=== PATIENT | male | born 1945 | race Caucasian/White ===

== ENCOUNTER 2016-09-17 20:18 | Observation (INO) ==
[2016-09-17] MEDS ORDERED: 0.9 % Sodium Chloride 1,000 ML IV ONE (21:23)
--- NOTE | 2016-09-17 21:39 | Emergency Department Note ---
Disposition Clinical Impression: Lower GI bleeding, New onset atrial flutter, Bradycardia Disposition: Admitted As Inpatient Condition: Good Referrals: Zenaida Ace DO [Primary Care Provider] - Forms: ED Satisfaction Letter, Work/School Release GI Bleed HPI - General Chief complaint: ED Abdominal Pain Stated complaint: RECTAL BLEED Time Seen by Provider: 09/17/16 21:06 Source: patient Limitations: no limitations Nursing Notes Reviewed: Yes Vital Signs Reviewed: Yes - History of Present Illness HPI Narrative: 71-year-old male with a history of high blood pressure and high cholesterol presents to the emergency department with the chief complaint of blood per rectum. He went to have a bowel movement tonight and states it was very explosive and when he wiped noticed red blood on the paper. Later that evening he went to pass gas and passed another bout of bright red blood into his underwear. While he was taking a shower to get cleaned up he had another gush of bright red blood per rectum. Patient denies any history of GI bleeding in the past. He had an colonoscopy about 20 years but not since then. No family history of colon cancer. Denies any abdominal pain, nausea or vomiting. Denies any recent black or bloody stools. Denies any rectal pain. Denies any lightheadedness or syncope. No chest pain, palpitations or dyspnea. - Related Data Allergies Allergy/AdvReac Type Severity Reaction Status Date / Time No Known Allergies Allergy Verified 09/17/16 21:24 All systems ED: reviewed and negative except as stated. Constitutional: Denies: fever Cardiovascular: Denies: chest pain, palpitations Respiratory: Denies: cough, dyspnea Gastrointestinal: Reports: hematochezia. Denies: abdominal pain, nausea, vomiting, hematemesis Genitourinary: Denies: urgency Musculoskeletal: Denies: back pain Integumentary: Denies: rash Neurological: Denies: headache Past Medical History - Past Medical History Medical history: Reports: hypertension Psychiatric history: Reports: no psych history - Social History Smoking Status: Never smoker Smokeless Tobacco Status: Yes Alcohol use: Reports: none Drug use: Reports: none Physical Exam General: Appears well, alert and oriented x 3 resting comfortably in bed Cardiovascular: Regular rate and rhythm. S1, S2. No murmurs, rubs or gallops. Monitor shows what appears to be atrial flutter Respiratory: Breath sounds clear bilaterally. No wheezing, rales or rhonchi. No resp distress Abdomen: Soft, nontender. No guarding, rebound or rigidity. Normal bowel sounds throughout. Negative Waldron's. No palpable organomegaly Eyes: conjunctiva clear HENT: Occasional white plaques on tongue. No oral mucosal lesions. Moist mucous membranes Neuro: Cranial nerves intact. No motor or sensory deficit. Musculoskeletal: No joint tenderness or swelling Skin: No lesions. No diaphoresis. Normal turgor. Normal color Psych: Appropriate - General Limitations: no limitations General appearance: alert, in no apparent distress Course Course Narrative: Presented to the emergency department with the chief complaint of blood per rectum. No history of GI bleed in the past. He is on aspirin and Plavix. Rectal exam reveals gross bright red blood without any hemorrhoids, fissures or signs of source. CT scan shows diverticulosis without diverticulitis. Hemoglobin and blood pressure stable. On the monitor he was having runs of bradycardia into the mid to low 30s. His initial EKG showed what appeared to be atrial flutter with a 4-1 ratio and during his run of bradycardia and EKG was performed showing what appears to be a 7-1 atrial flutter. Patient has not been significantly symptomatic from this and states over the last couple days she has felt a little bit more tired with exertion. Since he has not been evaluated for this in the past and getting quite bradycardic we feel its safest for the patient to be evaluated by a information tech prior to discharge. Plan to admit for new onset atrial flutter with bradycardia. Spoke with Dr. Patel who agrees to admit the patient and he will be sent to telemetry unit. Vital Signs Temperature 97.6 F 09/17/16 20:31 Pulse Rate 64 09/17/16 20:31 Respiratory Rate 16 09/17/16 20:31 Blood Pressure 145/89 09/17/16 20:31 O2 Sat by Pulse Oximetry 93 L 09/17/16 20:31 Temperature 97.6 F 09/17/16 20:31 Pulse Rate 46 09/18/16 00:00 Respiratory Rate 20 09/18/16 00:00 Blood Pressure 165/92 09/18/16 00:00 O2 Sat by Pulse Oximetry 94 L 09/18/16 00:00 Oxygen Delivery Oxygen Delivery Room Air GI Bleed - Lab Data Result diagrams: 09/17/16 21:44 09/17/16 21:44 Lab Results 09/17/16 09/17/16 09/17/16 Range/Units 21:15 21:44 21:44 WBC 7.4 (4.3-11.1) K/mcL RBC 5.72 H (4.19-5.50) M/mcL Hgb 17.5 H (12.9-16.9) g/dL Hct 50.8 H (37.5-50.1) % MCV 88.8 (83.0-100.0) fL MCH 30.6 (28.0-33.3) pg MCHC 34.4 (31.6-35.5) g/dL RDW 12.4 (11.5-14.5) % Plt Count 165 (140-400) K/mcL MPV 10.1 (9.4-12.4) fL Immature Gran % 0.4 (0-4) % Seg Neutrophils % 56.0 % Lymphocytes % 30.8 % Monocytes % 10.7 % Eosinophils % 1.6 % Basophils % 0.5 % Neutrophils # 4.1 (1.6-8.9) K/mcL Lymphocytes # 2.3 (0.6-4.6) K/mcL Monocytes # 0.8 (0.0-1.3) K/mcL Eosinophils # 0.1 (0.0-0.6) K/mcL Basophils # 0.0 (0.0-0.2) K/mcL Immature Plt Fraction 3.8 (1.1-6.1) % PT 12.3 H (9.4-12.1) Seconds INR 1.1 APTT 32.9 (26.0-36.0) Seconds Sodium (136-145) mEq/L Potassium (3.5-4.5) mEq/L Chloride (98-109) mEq/L Carbon Dioxide (19-29) mEq/L BUN (8-26) mg/dL Creatinine (0.72-1.25) mg/dL Est GFR ( Amer) (> 60) Est GFR (Non-Af Amer) (> 60) BUN/Creatinine Ratio (6-26) Glucose (70-99) mg/dL Calculated Osmolality (280-300) Calcium (8.6-10.8) mg/dL Total Bilirubin (0.2-1.2) mg/dL AST (5-34) Units/L ALT (0-55) Units/L Alkaline Phosphatase (38-126) Units/L Serum Total Protein (6.0-8.3) g/dL Albumin (3.5-5.0) g/dL Globulin (2.4-3.5) g/dL Albumin/Globulin Ratio (1.1-2.2) Stool Occult Blood (Negative) Specimen Rejected Clotted Blood Type Antibody Screen 09/17/16 09/17/16 09/17/16 Range/Units 21:44 21:44 21:55 WBC (4.3-11.1) K/mcL RBC (4.19-5.50) M/mcL Hgb (12.9-16.9) g/dL Hct (37.5-50.1) % MCV (83.0-100.0) fL MCH (28.0-33.3) pg MCHC (31.6-35.5) g/dL RDW (11.5-14.5) % Plt Count (140-400) K/mcL MPV (9.4-12.4) fL Immature Gran % (0-4) % Seg Neutrophils % % Lymphocytes % % Monocytes % % Eosinophils % % Basophils % % Neutrophils # (1.6-8.9) K/mcL Lymphocytes # (0.6-4.6) K/mcL Monocytes # (0.0-1.3) K/mcL Eosinophils # (0.0-0.6) K/mcL Basophils # (0.0-0.2) K/mcL Immature Plt Fraction (1.1-6.1) % PT (9.4-12.1) Seconds INR APTT (26.0-36.0) Seconds Sodium 138 (136-145) mEq/L Potassium 4.0 (3.5-4.5) mEq/L Chloride 106 (98-109) mEq/L Carbon Dioxide 23 (19-29) mEq/L BUN 27 H (8-26) mg/dL Creatinine 1.43 H (0.72-1.25) mg/dL Est GFR ( Amer) 59 L (> 60) Est GFR (Non-Af Amer) 49 L (> 60) BUN/Creatinine Ratio 19 (6-26) Glucose 136 H (70-99) mg/dL Calculated Osmolality 293 (280-300) Calcium 9.5 (8.6-10.8) mg/dL Total Bilirubin 0.5 (0.2-1.2) mg/dL AST 28 (5-34) Units/L ALT 28 (0-55) Units/L Alkaline Phosphatase 76 (38-126) Units/L Serum Total Protein 7.1 (6.0-8.3) g/dL Albumin 3.6 (3.5-5.0) g/dL Globulin 3.5 (2.4-3.5) g/dL Albumin/Globulin Ratio 1.0 L (1.1-2.2) Stool Occult Blood Positive A (Negative) Specimen Rejected Blood Type A POSITIVE Antibody Screen NEGATIVE Attestation Statement - Attestation Attestation: I, Chris Wilburn MD, personally performed a history and physical exam of the patient and discussed their management with the resident. I reviewed the resident's note and agree with the documented findings, medical decision making , and plan of care. 71-year-old male presents to the emergency department with a complaint of bright red rectal bleeding which just started about 4:30 this afternoon. Patient states that he had a bowel movement and when he wiped he noticed there was bright red blood on the tissue. A little while later he states he passed some gas and there was some bright red blood in his underwear. He then had a bowel movement with bright red blood. He denies any abdominal pain. No prior history of similar problems. He does take Plavix and aspirin but no other blood thinners. Patient denies any chest pain or palpitations or shortness of breath however was noted to be in atrial flutter with a variable block. While here in the emergency department today patient developed bradycardia with a heart rate primarily in the 40s and occasionally dropping down into the 30s. He was asymptomatic with this and had no chest pain or dizziness or weakness or shortness of breath. On examination patient is a well-developed well-nourished well-appearing elderly male in no acute distress. He is alert and oriented 3. There is no cyanosis or diaphoresis. Chest is nontender to palpation. Breath sounds are clear and equal bilaterally. Heart irregular and bradycardic. Abdomen soft and nontender with normal bowel sounds. Labs reviewed. CT of the abdomen shows diverticulosis with no diverticulitis, no acute abdominal abnormalities. EKG showed atrial flutter. The hospitalist, Dr. Patel, was consulted and accepted admission of the patient.
[2016-09-17 21:52] LABS: Basophils % 0.5 %; Eosinophils # 0.1 K/mcL (0.0-0.6); Eosinophils % 1.6 %; Hematocrit 50.8 % (37.5-50.1); Hemoglobin 17.5 g/dL (12.9-16.9); Immature Granulocytes % 0.4 % (0-4); Immature Platelets 3.8 % (1.1-6.1); Lymphocytes # 2.3 K/mcL (0.6-4.6); Lymphocytes % 30.8 %; Mean Corpuscular HGB Conc 34.4 g/dL (31.6-35.5); Mean Corpuscular Hemoglobin 30.6 pg (28.0-33.3); Mean Corpuscular Volume 88.8 fL (83.0-100.0); Mean Platelet Volume 10.1 fL (9.4-12.4); Monocytes # 0.8 K/mcL (0.0-1.3); Monocytes % 10.7 %; Neutrophils # 4.1 K/mcL (1.6-8.9); Platelet Count 165 K/mcL (140-400); Red Blood Count 5.72 M/mcL (4.19-5.50); Red Cell Distribution Width 12.4 % (11.5-14.5)
[2016-09-17 21:57] LABS: INR 1.1; Prothrombin Time 12.3 Seconds (9.4-12.1)
[2016-09-17 21:59] LABS: Activated Partial Thrombo Time 32.9 Seconds (26.0-36.0)
[2016-09-17 22:06] LABS: Albumin 3.6 g/dL (3.5-5.0); Bilirubin,Total 0.5 mg/dL (0.2-1.2); Calcium 9.5 mg/dL (8.6-10.8); Globulin 3.5 g/dL (2.4-3.5); Total Protein 7.1 g/dL (6.0-8.3)
[2016-09-18] MEDS ORDERED: Acetaminophen 325 MG TABLET PO PRN (01:25)
[2016-09-18] MEDS ORDERED: Ondansetron 4 MG/2 ML VIAL IVP PRN (01:25)
--- NOTE | 2016-09-18 01:42 | Internal Med History&Physical ---
<Carlos Porter - Last Filed: 09/18/16 02:27> Date of Encounter: 09/18/16 Time of Encounter: 02:15 Assessment and Plan (1) Lower GI bleeding Current visit: Yes Status: Acute Likely due to diverticular bleed. Patient continues to have episodes of BRBPR. Hgb 17.5 with history of polycytemia. Will follow H/H. Continue IVFs. Started protonix. Consult GI. (2) New onset atrial flutter Current visit: Yes Status: Acute New onset A flutter with slow ventricular response. Consult to cardiology. (3) Bradycardia Current visit: Yes Status: Acute Asymptomatic bradycardia. Will continue to monitor. (4) HTN (hypertension) Current visit: Yes Status: Chronic BP on admission of 145/89. Continue home regimen at this time. Qualifiers: Hypertension type: essential hypertension Qualified Code(s): I10 - Essential (primary) hypertension (5) Polycythemia Current visit: Yes Status: Chronic Known history of polycythemia, current Hgb 17.5. (6) DVT prophylaxis Current visit: Yes Status: Acute Patient actively bleeding, avoid anticoagulation. Use EPCDs. Internal Medicine - H&P: HPI Chief complaint: rectal bleeding Admitted From: Emergency Dept Plans for Post Hospital Care: Home History of present illness: Mr. Leos is a 71 year old male that presented to the ED for BRBPR x 1 day. Patient notes bright red rectal bleeding this afternoon at approx 4pm with initial bowel movement, with more bleeding noted later with flatulence. Patient does take ASA and Plavix currently for polycytemia. In the ED patient was noted to have atrial flutter and bradycardia. Denies any known cardiac history. Patient denies any syncope, dizziness, chest pain, shortness of breath, abdominal pain. Pertinent medical history of polycythemia, HTN, TIA. Past Med Surg Social Fam HX - Past Medical History Medical history: hypertension Psychiatric history: no psych history - Social History Smoking Status: Never smoker Smokeless Tobacco Status: Yes Alcohol use: none Drug use: none Internal Medicine - H&P: Meds Clopidogrel [Plavix] 75 mg PO DAILY 09/18/16 [History] Allergies No Known Allergies Allergy (Verified 09/17/16 21:24) All Systems PM: A 10-system review of systems was performed and is negative for pertinent findings except as documented above in the HPI. - Constitutional Constitutional: no chills, no fever(s), no night sweats - EENT Eyes: no change in vision, no discharge, no pain, no photophobia Ears: no tinnitus Nose, mouth and throat: no dysphagia, no nasal discharge, no neck pain, no sore throat - Cardiovascular Cardiovascular ROS IM: no chest pain, no diaphoresis, no dyspnea, no lightheadedness, no palpitations, no syncope - Respiratory Respiratory: no dyspnea, no wheezing, no excessive phlegm production - Gastrointestinal Gastrointestinal: hematochezia, no abdominal pain, no hematemesis, no melena, no nausea, no vomiting - Musculoskeletal Musculoskeletal ROS IM: numbness (b/l feet), no tingling - Integumentary Integumentary IM: no rash, no unusual bruising - Neurological Neurological ROS: no confusion, no convulsions, no focal weakness, no tingling, no tremor(s) - Constitutional Vitals: Temp Pulse Resp BP Pulse Ox 97.6 F 46 20 139/86 94 L 09/17/16 20:31 09/18/16 00:00 09/18/16 00:48 09/18/16 00:48 09/18/16 00:00 General appearance: Present: mild distress, A&O X 3, no acute distress, answers questions appropriately - Head Head exam: Present: atraumatic, normocephalic - Eye Eye exam: Present: EOMI, PERRL, conjuntiva pink, sclera anicteric Pupils: Present: PERRL - Neck Neck exam general surgery: Present: supple, trachea midline. Absent: lymphadenopathy - Respiratory Respiratory exam: Present: CTAB. Absent: accessory muscle use, rales, rhonchi, wheezes - Cardiovascular Cardiovascular exam: Present: +S1, +S2. Absent: diastolic murmur, gallop, rubs , systolic murmur - GI/Abdominal GI/Abdominal exam: Present: normal bowel sounds, soft, no peritoneal signs. Absent: distended, tenderness - Extremities Exam Extremities exam: Present: warm. Absent: calf tenderness, cyanotic, pedal edema - Neurological Exam Neurological exam: Present: alert, oriented X3, no focal deficits. Absent: facial droop, speech deficit - Skin Skin exam: Present: dry, intact Internal Med - H&P Results - Labs CBC & Chem 7: 01/04/17 21:44 09/17/16 21:44 <Hayder Gerardo H - Last Filed: 09/18/16 02:45> Date of Encounter: 09/18/16 Internal Medicine - H&P: HPI History of present illness: Mr. Leos is a 71 year old male All Systems PM: A 10-system review of systems was performed and is negative for pertinent findings except as documented above in the HPI. - Constitutional Vitals: Temp Pulse Resp BP Pulse Ox 98.2 F 38 17 147/77 94 L 09/18/16 01:55 09/18/16 02:32 09/18/16 01:55 09/18/16 02:32 09/18/16 02:32 Internal Med - H&P Results - Labs CBC & Chem 7: 09/17/16 21:44 09/17/16 21:44 - Attending Attestation No dizziness, no prior episodes. Next additional past medical history polycythemia, TIA, hypertension, hyperlipidemia Family history mother with heart disease Hold aspirin and Plavix Transfer general prophylaxis and sequential compression devices for deep prophylaxis. Patient will be admitted for observation. He is a full code. Time spent on this admission 40 minutes. He is high risk for falling due to atrial flutter with slow ventricular response and GI bleed/acute diverticular bleed CT scan of the abdomen did not show any acute diverticulitis. Right renal cyst evidenced as incidental finding I examined this patient and my medical decision-making was reviewed with the AGENT TELEGRAPHER/PA/Advanced Practice Nurse/Resident Physician. I agree with the documented findings, disposition and treatment plan as described except to the extent set forth below.
[2016-09-18] MEDS: 0.9 % Sodium Chloride 1,000 ML IVC SCH ×2 (03:12→13:45)
[2016-09-18 05:56] LABS: Hematocrit 48.3 % (37.5-50.1); Hemoglobin 16.3 g/dL (12.9-16.9); Mean Corpuscular HGB Conc 33.7 g/dL (31.6-35.5); Mean Corpuscular Hemoglobin 30.7 pg (28.0-33.3); Platelet Count 146 K/mcL (140-400); Red Blood Count 5.31 M/mcL (4.19-5.50); Red Cell Distribution Width 12.6 % (11.5-14.5)
[2016-09-18] MEDS: Pantoprazole 40 MG VIAL IVP SCH ×2 (06:29→18:50)
[2016-09-18 07:27] LABS: BUN/Creatinine Ratio 20 (6-26); Calcium 8.7 mg/dL (8.6-10.8); Carbon Dioxide 25 mEq/L (19-29); Chloride 110 mEq/L (98-109); Glucose 105 mg/dL (70-99); Osmolality,Calculated 297 (280-300); Potassium 4.3 mEq/L (3.5-4.5); Sodium 141 mEq/L (136-145); eGFR For African Americans > 60 (> 60); eGFR For Non-African Americans 58 (> 60)
[2016-09-18 07:29] LABS: Blood Urea Nitrogen 25 mg/dL (8-26)
[2016-09-18 11:52] LABS: Hematocrit 48.6 % (37.5-50.1); Hemoglobin 16.6 g/dL (12.9-16.9); Mean Corpuscular HGB Conc 34.2 g/dL (31.6-35.5); Mean Corpuscular Hemoglobin 30.5 pg (28.0-33.3); Mean Corpuscular Volume 89.3 fL (83.0-100.0); Mean Platelet Volume 10.5 fL (9.4-12.4); Platelet Count 147 K/mcL (140-400); Red Blood Count 5.44 M/mcL (4.19-5.50); Red Cell Distribution Width 12.6 % (11.5-14.5)
--- NOTE | 2016-09-18 11:57 | Gastroenterology Consult Note ---
<RatliffJose Lewis - Last Filed: 09/18/16 11:55> Date of Encounter: 09/18/16 Time of Encounter: 10:55 - Assessment and plan (1) Lower GI bleeding Current Visit: Yes Status: Acute Assessment and plan: Recommend colonoscopy, but pt refuses at this time, stating he has "been without food since 5PM yesterday and that is too long to go without food". I explained the risks and not completing the colonoscopy, and the patient continued to refuse. Dr. Quiñones will speak with patient this afternoon. Continue clear liquid diet today, no red or purple. If pt is agreeable to colonoscopy: NPO at midnight. If unable tolerate NuLytely please use MiraLAX prep. If not clear by 6 AM, give 2 tap water enemas. (2) Polycythemia Current Visit: Yes Status: Chronic - Time Spent With Patient Total time spent is greater than 50% in coordination of care (as documented) at patient's floor/unit and/or counseling patient: GI History of Present Illness - Data of Consult Patient: new to practice Consult date: 09/18/16 Requesting Physician: Thomas Chance MD - Consult Narrative Reason for consult: BRBPR History of present illness: Mr. Leos is a 71 year old male with PMHx of HTN, TIA, and polycythemia who presented to the ED with BRBPR. He does take ASA and Plavix for polycythemia. He reports BRBPR with BM yesterday and noted more bleeding with flatulence. He reports 4 episodes of BRBPR. He denies syncope, dizziness, chest pain, SOB, abdominal pain, nausea, vomiting, or diarrhea. CT A/P showed diverticulosis otherwise no acute process noted. Hgb on admission 17.5 and this AM 16.3. This AM he complains of being hungry and states he wants to eat. Procedures: Cscope 15 years ago per pt report. NSAIDs: ASA Anticoagulation: Plavix Past Med Surg Social Fam HX - Past Medical History Medical history: hypertension Psychiatric history: no psych history - Social History Smoking Status: Never smoker Smokeless Tobacco Status: Yes Alcohol use: none Drug use: none - Family History Father Living Status: Age at : 89 Cause of : Organ Failure r/t Diabetes Hx Family Cardiac Disorders: Yes (HTN) Hx Family Respiratory Disorders: No Hx Family Cancer: No Hx Family GI Disorders: Yes (Diverticulitis) Hx Family Endocrine Disorder: Yes (Type 2 DM,) Hx Family Musculoskeletal Disorders: No Hx Family Neuromuscular Disorders: No Hx Family Neurologic Disorders: No Hx Family HEENT Disorders: No Hx Family Autoimmune Disorders: No Hx Family Reproductive Disorders: No Hx Family Psychosocial Disorders: No Hx Family Medical Disorders: No - Gastrointestinal Gastrointestinal: Present: as per HPI - Constitutional Constitutional: as per HPI - EENT Eyes: as per HPI Ears: Present: as per HPI Nose, mouth and throat: Present: as per HPI - Respiratory Respiratory IM: Present: as per HPI - Genitourinary Genitourinary: Absent: change in color, Urinary frequency - Neurological ROS Neurological GI: Present: as per HPI - Hematologic/Lymphatic Hematologic/Lymphatic pediatric: Present: as per HPI - Musculoskeletal Musculoskeletal ROS GI: Present: as per HPI - Integumentary Integumentary GI: Present: as per HPI - Psychiatric ROS Psychiatric GI: Present: as per HPI - Endocrine Endocrine IM: Present: as per HPI - Constitutional Vitals: Temp Pulse Resp BP Pulse Ox 97.3 F L 41 18 148/99 96 09/18/16 10:50 09/18/16 10:50 09/18/16 10:50 09/18/16 10:50 09/18/16 10:50 General appearance: Present: cooperative, A&O X 3, no acute distress, answers questions appropriately - Head Head exam: Present: atraumatic, normocephalic - Eye Eye exam: Present: normal appearance, sclera anicteric - ENT ENT exam: Present: mucous membranes dry - Neck Neck exam general surgery: Present: normal inspection, trachea midline - Respiratory Respiratory exam: Present: CTAB. Absent: rales, rhonchi - Cardiovascular Cardiovascular exam: Present: RRR, +S1, +S2 - GI/Abdominal GI/Abdominal exam: Present: soft, no peritoneal signs. Absent: distended, firm , guarding, tenderness - Rectal Rectal exam: Present: deferred - Extremities Exam Extremities exam: Present: warm - Neurological Exam Neurological exam: Present: no focal deficits - Psychiatric Psychiatric exam: Present: normal affect, normal mood - Skin Skin exam: Present: dry, intact, normal color, warm Results - Labs CBC & Chem 7: 09/18/16 05:35 09/18/16 06:34 Labs: Last Result Calcium 8.7 mg/dL (8.6-10.8) 09/18/16 06:34 Stool Occult Blood Positive (Negative) A 09/17/16 21:55 Entire Visit Hgb 16.3 g/dL (12.9-16.9) 09/18/16 05:35 Hct 48.3 % (37.5-50.1) 09/18/16 05:35 PT 12.3 Seconds (9.4-12.1) H 09/17/16 21:44 Total Bilirubin 0.5 mg/dL (0.2-1.2) 09/17/16 21:44 AST 28 Units/L (5-34) 09/17/16 21:44 ALT 28 Units/L (0-55) 09/17/16 21:44 - ABG ABG results: PT/INR, D-dimer PT 12.3 Seconds (9.4-12.1) H 09/17/16 21:44 Consult Discharge Plan - Plan Referrals: Zenaida Ace DO [Primary Care Provider] - <Lula Quiñones - Last Filed: 09/18/16 17:38> Date of Encounter: 09/18/16 Time of Encounter: 17:30 - Time Spent With Patient Total time spent is greater than 50% in coordination of care (as documented) at patient's floor/unit and/or counseling patient: GI History of Present Illness - Data of Consult Requesting Physician: Thomas Chance MD - Consult Narrative History of present illness: Mr. Leos is a 71 year old male - Constitutional Vitals: Temp Pulse Resp BP Pulse Ox 99.6 F 42 16 154/90 95 09/18/16 15:49 09/18/16 15:49 09/18/16 15:49 09/18/16 15:49 09/18/16 15:49 Results - Labs CBC & Chem 7: 09/18/16 10:39 09/18/16 06:34 Labs: Last Result Calcium 8.7 mg/dL (8.6-10.8) 09/18/16 06:34 Stool Occult Blood Positive (Negative) A 09/17/16 21:55 Entire Visit Hgb 16.6 g/dL (12.9-16.9) 09/18/16 10:39 Hct 48.6 % (37.5-50.1) 09/18/16 10:39 PT 12.3 Seconds (9.4-12.1) H 09/17/16 21:44 Total Bilirubin 0.5 mg/dL (0.2-1.2) 09/17/16 21:44 AST 28 Units/L (5-34) 09/17/16 21:44 ALT 28 Units/L (0-55) 09/17/16 21:44 - ABG ABG results: PT/INR, D-dimer PT 12.3 Seconds (9.4-12.1) H 09/17/16 21:44 - Attending Attestation I examined this patient and my medical decision-making was reviewed with the [employer]/PA/Advanced Practice Nurse/Resident Physician. I agree with the documented findings, disposition and treatment plan as described except to the extent set forth below. Patient with rectal bleeding. Recommend needing colonoscopy which per patient is scheduled outpatient with another provider. Strongly recommend that he does has his colonoscopy done as none has been done in the last 15 year.
--- NOTE | 2016-09-18 12:19 | Cardiology Consult Note ---
<Yandel Wesley - Last Filed: 09/18/16 13:53> Date of Encounter: 09/18/16 Time of Encounter: 12:30 Assessment and Plan (1) New onset atrial flutter Current Visit: Yes Status: Acute Per Cardiology: Patient presented with bright red rectal bleeding and had subsequent finding of suspected new onset A flutter with slow ventricular response. Not on AV karen blocking agents. We'll check TSH. We'll check echocardiogram. Regarding long-term anticoagulation, [id number] = 4. At present and on aspirin and Plavix for polycythemia. Currently on hold due to bright red rectal bleeding. Patient has declined colonoscopy with GI here. Patient prefers to complete colonoscopy at outside facility. Ideally, patient would be on long- term anticoagulation for stroke prevention, however cannot make final decision until colonoscopy completed. Patient and aware of increased stroke risk. (2) Bradycardia Current Visit: Yes Status: Acute Per Cardiology: Noted to be bradycardic with atrial flutter with average heart rate 43. Slowest heart rate noted to be 26 with longest pause 3.3 seconds. Patient asymptomatic. Continue to monitor telemetry. Patient desires to follow-up with [facility] cardiology. At this point no need for pacemaker, however continue to monitor. (3) Lower GI bleeding Current Visit: Yes Status: Acute Per Cardiology: GI following. H&H stable. Patient declines C scope here desires to follow-up at the location for colonoscopy. (4) Polycythemia Current Visit: Yes Status: Chronic Per Cardiology: Known history of polycythemia, current Hgb 17.5. On aspirin and Plavix at home, currently on hold. Recommend against resuming for now due to GI bleeding Discussion w patient/family: The assessment and plan as outlined above was discussed with the patient and/or family members who expressed understanding and agreement. All questions were answered. Thank you for involving us in the care of your patient. Please call with any questions. History of Present Illness Consult date: 09/18/16 Requesting physician: Hayder Gerardo Consult reason: Bradycardia Chief complaint: Rectal bleeding History of present illness: Mr. Leos is a 71 year old male with PMHx of HTN, TIA 1986, HLD, JALIL ( noncompliant with CPAP) and polycythemia who presented to the ED with BRBPR. On ASA and Plavix for his polycythemia. He reports BRBPR with BM yesterday. He denies syncope, dizziness, chest pain, SOB, abdominal pain, nausea, vomiting, or diarrhea. He reports seen Dr. Montemayor in [place] a few years ago for skipped heartbeats and wore a Holter that showed what appears to be occasional PACs. He denies any history of atrial flutter or atrial fibrillation. Denies any CAD is never had ischemic evaluation. Past Med Surg Social Fam HX - Past Medical History Attestation: Yes The following information was validated with the patient. Source: patient, old records reviewed Medical history: hyperlipidemia, hypertension, TIA, other (jalil) Psychiatric history: no psych history - Social History Smoking Status: Never smoker Smokeless Tobacco Status: Yes Alcohol use: none Drug use: none - Family History Father Living Status: Age at : 89 Cause of : Organ Failure r/t Diabetes Hx Family Cardiac Disorders: Yes (HTN) Hx Family Respiratory Disorders: No Hx Family Cancer: No Hx Family GI Disorders: Yes (Diverticulitis) Hx Family Endocrine Disorder: Yes (Type 2 DM,) Hx Family Musculoskeletal Disorders: No Hx Family Neuromuscular Disorders: No Hx Family Neurologic Disorders: No Hx Family HEENT Disorders: No Hx Family Autoimmune Disorders: No Hx Family Reproductive Disorders: No Hx Family Psychosocial Disorders: No Hx Family Medical Disorders: No Medications and Allergies Aspirin [Lo-Dose Aspirin EC] 81 mg PO DAILY 09/18/16 [History] Clopidogrel [Plavix] 75 mg PO DAILY 09/18/16 [History] Enalapril Maleate [Vasotec] 5 mg PO BID 09/18/16 [History] Minocycline HCl [Minocin] 100 mg PO DAILY 09/18/16 [History] Simvastatin [Zocor] 20 mg PO HS 09/18/16 [History] Allergies No Known Allergies Allergy (Verified 09/17/16 21:24) All Systems Review: A 10-system review of systems was performed and is negative for pertinent findings except as documented above in the HPI. - Cardiovascular Cardiovascular: as per HPI - Gastrointestinal Gastrointestinal: hematochezia Physical Examination Vital Signs, Last 4 Hours Temp Pulse Resp BP Pulse Ox 09/18/16 10:50 97.3 F L 41 18 148/99 96 General: Conversant, No Apparent Distress HEENT: Atraumatic, Normocephaly, Mucus Membranes Moist Neck: No JVD, Normal carotid pulses Cardiac: No Murmur, Other (Irregular irregular) Lungs: Normal Breath Sounds, No Wheeze, Rales, Rhonchi Neuro: Alert and responsive, No focal deficits noted Abdomen: Soft, Non-Tender Skin: No rashes noted on visualized skin Musculoskeletal: No Chest Wall Tenderness Extremities: No Edema, Normal Pulses Results 09/18/16 10:39 09/18/16 06:34 Lab Results Laboratory Tests 05/27/16 09/17/16 09/17/16 07:34 21:44 21:44 Hgb 17.5 H Hct 50.8 H INR 1.1 Creatinine 1.20 Est GFR (Non-Af Amer) 60 AST ALT Stool Occult Blood 09/17/16 09/17/16 09/18/16 21:44 21:55 06:34 Hgb Hct INR Creatinine 1.43 H 1.22 Est GFR (Non-Af Amer) 49 L 58 L AST 28 ALT 28 Stool Occult Blood Positive A 09/18/16 10:39 Hgb 16.6 Hct 48.6 INR Creatinine Est GFR (Non-Af Amer) AST ALT Stool Occult Blood ITS Impressions Abdomen/Pelvis CT 09/17/16 21:23 IMPRESSION: No acute process within the abdomen or pelvis. Mild diverticulosis without evidence of acute diverticulitis. Colonoscopy may be of value given history of rectal bleeding. Tiny nonobstructive calculus within the upper pole of the left kidney. D/ / 09/17/2016 22:44:04 Kwame Mccullough MD / [email or web address] Interpreting Provider: Kwame Mccullough MD Active Medications Acetaminophen (Tylenol) 650 mg PO Q6HR PRN PRN Reason: Mild Pain (1-3) Stop: 03/20/17 01:26 Bisacodyl (Dulcolax) 20 mg PO ONCE ONE Stop: 09/18/16 15:01 Sodium Chloride (0.9 % Sodium Chloride) 1,000 mls @ 100 mls/hr IVC .Q10H CHARITY Stop: 03/20/17 01:31 Last Admin: 09/18/16 03:12 Dose: 100 mls/hr Ondansetron HCl (Zofran) 4 mg IVP Q8HR PRN PRN Reason: Nausea And Vomiting Stop: 03/20/17 01:26 Pantoprazole Sodium (Protonix) 40 mg IVP Q12HR CHARITY Stop: 03/20/17 06:01 Last Admin: 09/18/16 06:29 Dose: 40 mg Sodium Cl/Sod Bicarb/Potass Cl/PEG (Nulytely) 4,000 ml PO ONCE ONE PRN Reason: Protocol Stop: 09/18/16 17:01 - Imaging and Cardiology Echo: pending - EKG Interpretation EKG results cardiology: personally reviewed (Atrial flutter with slow ventricular response), other (24 hour telemetry reviewed with average heart rate 43, atrial flutter, longest pause 3.3 seconds) Consult Discharge Plan - Plan Referrals: Zenaida Ace DO [Primary Care Provider] - <Sandra Mixon - Last Filed: 09/18/16 17:14> Date of Encounter: 09/18/16 Assessment and Plan Discussion w patient/family: The assessment and plan as outlined above was discussed with the patient and/or family members who expressed understanding and agreement. All questions were answered. Thank you for involving us in the care of your patient. Please call with any questions. History of Present Illness History of present illness: Mr. Leos is a 71 year old male All Systems Review: A 10-system review of systems was performed and is negative for pertinent findings except as documented above in the HPI. Physical Examination Vital Signs, Last 4 Hours Temp Pulse Resp BP Pulse Ox 09/18/16 15:49 99.6 F 42 16 154/90 95 Results 09/18/16 10:39 09/18/16 06:34 Lab Results 09/18/16 09/18/16 09/18/16 05:35 06:34 10:39 WBC 7.7 7.2 Hgb 16.3 16.6 Hct 48.3 48.6 Plt Count 146 147 Sodium 141 Potassium 4.3 Chloride 110 H Carbon Dioxide 25 BUN 25 Creatinine 1.22 Glucose 105 H Calcium 8.7 TSH 3.011 - Attending Attestation I examined this patient and my medical decision-making was reviewed with the COMPUTER SYSTEMS AUDITOR/PA/Advanced Practice Nurse/Resident Physician. I agree with the documented findings, disposition and treatment plan. Mr. Leos presents with rectal bleeding and was incidentally discovered to be in atrial flutter with slow rate. He is asymptomatic from a cardiac standpoint specifically denying pre syncopal symptoms or syncope. He likely is manifesting signs of conduction system disease which will require outpatient follow up. He is interested in going to [facility]. We do not recommend full anticoagulation at this time due to rectal bleeding but due to elevated CHADSVASC score, he would be a candidate once bleeding issue is addressed. An echo is pending. If there are no concerning findings, we will sign off.
--- NOTE | 2016-09-18 14:15 | Electrocardiograph Report ---
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
[2016-09-18 14:49] LABS: Thyroid Stimulating Hormone 3.011 mcIU/mL (0.350-4.840)
--- NOTE | 2016-09-18 16:15 | Event Note ---
<Lee Meza - Last Filed: 09/18/16 16:05> Date of Encounter: 09/18/16 Time of Encounter: 09:45 Patient was seen and examined this morning. Patient is doing fine. Patient denies chest pain/discomfort, palpitation, lightheadedness, syncope, peripheral edema, shortness of breath, nausea, vomiting, abdominal pain, fever, chills. VS: T 97.5 HR 43 (A-flutter) RR 16 BP 109/70 93% on room air Gen: A&Ox3, NAD CV: bradycardia, irregular rhythm, no murmurs. Lung: CTAB Abd: soft, (+) bowel sounds, non-tender Ext: radial pulses palpable and symmetrical, no significant peripheral edema A&P Lower GI bleed: GI on board and plan to have colonoscopy tomorrow if patient agrees. Continue to monitor H&H New onset A-flutter: Cardiology on board. Long-term anticoagulation is recommended given [id number] = 4 but will wait until colonoscopy completed. Bradycardia: asymptomatic, continue telemetry monitoring. Polycythemia: Was on aspirin and Plavix at home but currently held for GI bleed. <Thomas Chance - Last Filed: 09/18/16 18:15> Date of Encounter: 09/18/16 I examined this patient and my medical decision-making was reviewed with the MANAGER OF DIGITAL/PA/Advanced Practice Nurse/Resident Physician. I agree with the documented findings, disposition and treatment plan as described except to the extent set forth below.
[2016-09-18] MEDS ORDERED: SODIUM CHLORIDE/NAHCO3/KCL/PEG 4,000 ML SOLN.RECON PO ONE (17:00)
--- NOTE | 2016-09-18 20:25 | Electrocardiograph Report ---
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
[2016-09-18] MEDS ORDERED: *HR* LORazepam 0.5 MG TABLET PO ONE (21:41)
[2016-09-19] MEDS: Pantoprazole 40 MG VIAL IVP SCH (05:55)
[2016-09-19 06:17] LABS: Basophils % 0.4 %; Eosinophils # 0.1 K/mcL (0.0-0.6); Eosinophils % 1.4 %; Hematocrit 47.5 % (37.5-50.1); Hemoglobin 16.2 g/dL (12.9-16.9); Immature Granulocytes % 0.4 % (0-4); Lymphocytes # 2.3 K/mcL (0.6-4.6); Lymphocytes % 29.8 %; Mean Corpuscular HGB Conc 34.1 g/dL (31.6-35.5); Mean Corpuscular Hemoglobin 30.8 pg (28.0-33.3); Mean Corpuscular Volume 90.3 fL (83.0-100.0); Mean Platelet Volume 10.3 fL (9.4-12.4); Monocytes # 0.9 K/mcL (0.0-1.3); Monocytes % 11.2 %; Neutrophils # 4.4 K/mcL (1.6-8.9); Platelet Count 143 K/mcL (140-400); Red Blood Count 5.26 M/mcL (4.19-5.50); Red Cell Distribution Width 12.4 % (11.5-14.5); Segmented Neutrophils % 56.8 %
[2016-09-19 06:28] LABS: BUN/Creatinine Ratio 14 (6-26); Blood Urea Nitrogen 16 mg/dL (8-26); Calcium 8.9 mg/dL (8.6-10.8); Carbon Dioxide 25 mEq/L (19-29); Chloride 107 mEq/L (98-109); Glucose 97 mg/dL (70-99); Osmolality,Calculated 289 (280-300); Potassium 3.9 mEq/L (3.5-4.5); Sodium 139 mEq/L (136-145); eGFR For African Americans > 60 (> 60); eGFR For Non-African Americans > 60 (> 60)
--- NOTE | 2016-09-19 07:45 | Cardiology Progress Note ---
Date of Encounter: 09/19/16 Time of Encounter: 08:00 Assessment and Plan (1) New onset atrial flutter Current Visit: Yes Status: Acute Per Cardiology: Patient presented with bright red rectal bleeding and had subsequent finding of suspected new onset A flutter with slow ventricular response. Not on AV karen blocking agents. TSH ok. Echo pending. Assuming no significant findings, we'll sign off and patient to follow-up with primary senior php software developer. Discussed and reviewed with Dr. Mixon. Regarding long-term anticoagulation, [id number] = 4. Had been on aspirin and Plavix for polycythemia, but currently on hold due to bright red rectal bleeding. Reports black stool last pm. Patient has declined colonoscopy with GI here. Patient prefers to complete colonoscopy at outside facility-- has scheduled with outside GI 09/30/16. Ideally, patient would be on long-term anticoagulation for stroke prevention, however cannot make final decision until colonoscopy completed. Patient and aware of increased stroke risk while not on anticoagulation. (2) Bradycardia Current Visit: Yes Status: Acute Per Cardiology: Noted to be bradycardic with atrial flutter with average heart rate 49 past 12 hours. Slowest heart rate noted to be 21 with longest pause 3.0 seconds during nocturnal hours. Patient asymptomatic. Continue to monitor telemetry. Patient desires to follow-up with [facility] cardiology. At this point no need for pacemaker, however continue to monitor. (3) Lower GI bleeding Current Visit: Yes Status: Acute Per Cardiology: GI following. H&H stable. Patient declines C scope here desires to follow-up at the location for colonoscopy. (4) Polycythemia Current Visit: Yes Status: Chronic Per Cardiology: Known history of polycythemia, H&H stable. On aspirin and Plavix at home, currently on hold. Recommend against resuming for now due to GI bleeding. Discussion w patient/family: The assessment and plan as outlined above was discussed with the patient and/or family members who expressed understanding and agreement. All questions were answered. Thank you for involving us in the care of your patient. Please call with any questions. Subjective Principal diagnosis: Aflutter with SVR Interval history: Patient denies any new concerns or complaints. Denies any short of breath, chest pain, palpitations. Denies any dizziness, syncope, falls. Reports had dark tarry stools yesterday evening. He indicates has appointment scheduled with outside GI specialist for colonoscopy September 30. Reports in process of scheduling outpatient cardiology appointment in [place] with his primary senior php software developer. Objective Vital Signs, Last 4 Hours Temp Pulse Resp BP Pulse Ox 09/19/16 04:00 97.5 F L 62 18 128/81 96 General: Conversant, No Apparent Distress HEENT: Atraumatic, Normocephaly, Mucus Membranes Moist Cardiac: No Murmur, Other (Irregularly irregular) Lungs: Normal Breath Sounds, No Wheeze, Rales, Rhonchi Neuro: Alert and responsive, No focal deficits noted Skin: No rashes noted on visualized skin Extremities: No Edema, Normal Pulses Results 09/19/16 05:39 09/19/16 05:39 Lab Results Laboratory Tests 09/18/16 06:34 TSH 3.011 09/19/16 05:39 Hgb 16.2 Hct 47.5 Active Medications Acetaminophen (Tylenol) 650 mg PO Q6HR PRN PRN Reason: Mild Pain (1-3) Stop: 03/20/17 01:26 Sodium Chloride (0.9 % Sodium Chloride) 1,000 mls @ 100 mls/hr IVC .Q10H CHARITY Stop: 03/20/17 01:31 Last Admin: 09/18/16 13:45 Dose: 100 mls/hr Ondansetron HCl (Zofran) 4 mg IVP Q8HR PRN PRN Reason: Nausea And Vomiting Stop: 03/20/17 01:26 Pantoprazole Sodium (Protonix) 40 mg IVP Q12HR CHARITY Stop: 03/20/17 06:01 Last Admin: 09/19/16 05:55 Dose: 40 mg - Imaging and Cardiology Echo: pending - EKG Interpretation EKG results cardiology: other (Tele reviewed and avg HR 49, slowest HR 21 during nocturnal hrs, longest pause 3 secs) - VTE Reasons for not Prescribing Prophylaxis: Not indicated-Anticoagulated or INR therapeutic Documentation of Mechanical Device: Intermittent pneumatic compression device Consult Discharge Plan - Plan Instructions: Atrial Flutter (DC), Colonoscopy (DC), Colonoscopy (GEN), Rectal Bleeding (DC), Rectal Bleeding (GEN), Chronic Hypertension (DC) Referrals: Zenaida Ace DO [Primary Care Provider] - 02/17/17 1:45 pm (6 MONTH FOLLOW UP APPOINTMENT) Liliane Tidwell CNP [Advanced Practice Nurse] - 09/25/16 9:40 am (HOSPITAL FOLLOW UP APPOINTMENT)
[2016-09-19 08:09] VITALS: BP 150/96
--- NOTE | 2016-09-19 10:03 | Discharge Summary ---
<SusanaLee - Last Filed: 09/19/16 13:18> Date of Encounter: 09/19/16 Time of Encounter: 09:00 - Discharge Diagnosis (1) Lower GI bleeding Priority: Primary Status: Acute (2) New onset atrial flutter Priority: Primary Status: Acute (3) Bradycardia Priority: Secondary Status: Acute (4) Polycythemia Priority: Secondary Status: Chronic - Discharge Medications Home Medications: Enalapril Maleate [Vasotec] 5 mg PO BID 09/18/16 [History] Minocycline HCl [Minocin] 100 mg PO DAILY 09/18/16 [History] Simvastatin [Zocor] 20 mg PO HS 09/18/16 [History] Allergies/Adverse Reactions: Allergies No Known Allergies Allergy (Verified 09/17/16 21:24) Procedures/tests Complete & Pending: Procedures Performed prior 72 hours Category Date Time Status EV echocardiogram Routine Y 09/18/16 13:52 Completed Date of admission: 09/18/16 00:40 Primary care physician: Titi Mayes Consults: 09/18/16 01:32 Consult to Cardiology [CONS] Routine Comment: Consulting Provider: [facility] [place] Reason for Consult: New onset A flutter. Call Completed: No Consult to Gastroenterology [CONS] Routine Consulting Provider: Gastroenterology [facility] Reason for Consult: BRBPR x 1 day, likely lower GI bleed. Call Completed: No Discharging clinician: Lee Meza Anticipated date of discharge: 09/19/16 - Patient Status Disposition: Home, Self-Care Condition: Good Functional capacity at discharge: independent ambulation Overall status at discharge: patient is progressing back to baseline - Discharge Instructions Instructions: Atrial Flutter (DC), Colonoscopy (DC), Colonoscopy (GEN), Rectal Bleeding (DC), Rectal Bleeding (GEN), Chronic Hypertension (DC) Follow Up With: Zenaida Ace DO [Primary Care Provider] - 02/17/17 1:45 pm (6 MONTH FOLLOW UP APPOINTMENT) Liliane Tidwell CNP [Advanced Practice Nurse] - 09/25/16 9:40 am (HOSPITAL FOLLOW UP APPOINTMENT) Additional Instructions: Please hold your aspirin and Plavix since you still has signs of GI bleed such as bright red blood per rectum or charcoal dark stool. Please follow up with your outpatient cardiology and gastroenterology after discharge. - Diet and Activity Activity: increase activity as tolerated Diet: low fat, low cholesterol Hospital course: Mr. Leos is a 71 year old male with PMH of polycythemia on aspirin and Plavix. Patient presented with bright red blood per rectum and was found to have A-flutter with bradycardia as low as 30s. Patient was admitted lower GI bleeding and new onset atrial flutter. Aspirin and Plavix were held and cardiology & gastroenterology were consulted. Patient is asymptomatic from his A -flutter & bradycardia. [id number] = 4. Patient needs long-term anticoagulation for stroke prevention but all anticoagulants are held given current GI bleeding. Patient likes to follow up with his hot bread baker in [place]. GI recommends colonoscopy but patient declines and states he will have scheduled one on 09/30/16 outside of [place]. Patient feels his rectal bleeding is getting better as his stool turned from bright red blood to more dark. Patient wants to go home. Given patient is medically stable with no significant drop on H&H, patient will be discharged home on 09/19/16 with continuation to hold aspirin and Plavix. Patient is recommended to follow up with his hot bread baker and jalousie installer as soon as possible after discharge. Patient verbalized his understanding. - Time Spent with Patient Total time spent providing and/or coordinating discharge services: Greater than 30 minutes - Constitutional Vitals: Temp Pulse Resp BP Pulse Ox 97.7 F 50 18 150/96 95 09/19/16 08:00 09/19/16 08:00 09/19/16 08:00 09/19/16 08:00 09/19/16 08:42 General appearance: Present: mild distress, A&O X 3, no acute distress, answers questions appropriately - Head Head exam: Present: atraumatic, normocephalic - Eye Eye exam: Present: PERRL, conjuntiva pink, sclera anicteric Pupils: Present: PERRL - Neck Neck exam general surgery: Present: supple, trachea midline. Absent: lymphadenopathy - Respiratory Respiratory exam: Present: CTAB. Absent: accessory muscle use, rales, rhonchi, wheezes - Cardiovascular Cardiovascular exam: Present: irregular rhythm, +S1, +S2. Absent: diastolic murmur, gallop, rubs, systolic murmur Additional comments: Bradycardia. - GI/Abdominal GI/Abdominal exam: Present: normal bowel sounds, soft, no peritoneal signs. Absent: distended, tenderness - Extremities Exam Extremities exam: Present: warm, radial pulses palpable and symetrical. Absent : calf tenderness, cyanotic, pedal edema - Neurological Exam Neurological exam: Present: CN II-XII intact, oriented X3, no focal deficits. Absent: pronater drift, facial droop, speech deficit - Skin Skin exam: Present: dry, intact, warm - VTE Reasons for not Prescribing Prophylaxis: Not indicated-Anticoagulated or INR therapeutic Documentation of Mechanical Device: Intermittent pneumatic compression device <Thomas Chance P - Last Filed: 09/19/16 18:44> Date of Encounter: 09/19/16 Procedures/tests Complete & Pending: Procedures Performed prior 72 hours Category Date Time Status EV echocardiogram Routine Y 09/18/16 13:52 Completed Date of admission: 09/18/16 00:40 Primary care physician: Titi Mayes Consults: 09/18/16 01:32 Consult to Cardiology [CONS] Routine Comment: Consulting Provider: [facility] [place] Reason for Consult: New onset A flutter. Call Completed: No Consult to Gastroenterology [CONS] Routine Consulting Provider: Gastroenterology [place] Reason for Consult: BRBPR x 1 day, likely lower GI bleed. Call Completed: No Hospital course: Mr. Leos is a 71 year old male - Time Spent with Patient Total time spent providing and/or coordinating discharge services: - Constitutional Vitals: Temp Pulse Resp BP Pulse Ox 97.7 F 50 18 150/96 95 09/19/16 08:00 09/19/16 08:00 09/19/16 08:00 09/19/16 08:00 09/19/16 08:42 - Attending Attestation I examined this patient and my medical decision-making was reviewed with the PROCESSOR GRAIN/PA/Advanced Practice Nurse/Resident Physician. I agree with the documented findings, disposition and treatment plan as described except to the extent set forth below.
--- NOTE | 2016-09-19 11:23 | ECHO - Doppler Report ---
Echocardiogram Name: Desmond Leos Date of Study: 09/18/2016 Date: 1945 Ht: 70.0 in Medical Record#: [id number] Age: 71 Wt: 234.0 lb Gender: Male BSA: 2.23 Order #: [id number] Location: [facility] Room #: [id number] Reading Physician: Shiv Tripp DO, KATHRYN, RONDA ARCOS Resident Care Aide: Samantha Burgos Ordering Physician: Yandel Wesley CNP Primary Physician: Zenaida Ace DO Indications: Atrial fibrillation Impressions: LVEF 65%. Normal LV chamber size and function. Mild concentric left ventricular hypertrophy. Indeterminate diastolic function. Normal right ventricular structure and function. Moderately dilated left atrium. Mild mitral regurgitation. No evidence of pulmonary hypertension. Left Ventricular Wall Motion: Rest Echo Findings All wall segments showed normal motion. Findings: Study Quality * Technically adequate exam. ECG Findings * Atrial fibrillation. Left Ventricle * LVEF 65%. * Normal LV chamber size and function. * Mild concentric left ventricular hypertrophy. * Indeterminate diastolic function. Right Ventricle * Normal right ventricular structure and function. Left Atrium * Moderately dilated left atrium. Right Atrium * Mildly dilated right atrium. Aortic Valve * Aortic valve not well visualized. * Mildly sclerotic aortic valve leaflets. * No aortic regurgitation. * No aortic stenosis. Mitral Valve * Mildly thickened mitral valve leaflets. * Mild mitral annular calcification * Mild mitral regurgitation. * No mitral stenosis. Tricuspid Valve * Normal tricuspid valve structure and function. * Trace tricuspid regurgitation. * No evidence of pulmonary hypertension. Pulmonic Valve * Pulmonic valve not well visualized. * No pulmonic regurgitation. Aorta * Normally sized aortic root. Pericardium * The pericardium appears normal. IVC * Normal IVC dimensions and inspiratory collapse. Pulmonary Artery * Normal visualized portions of the main pulmonary artery. History Hypertension Hypercholesteremia History of Smoking Years 40 Packs Measurements: BP: 154/ 90 2D Normal Values IVSd: 1.20 cm 0.6 - 1.0 cm LVIDd: 3.30 cm 3.7 - 5.6 cm LVPWd: 1.20 cm 0.6 - 1.1 cm LVIDs: 2.30 cm 1.5 - 3.6 cm AO: 3.50 cm < 4.0 cm LA: 4.40 cm 2.0 - 4.0cm %FS: 30.30 cm >25 % LA volume: 88 Mitral Valve Peak E:1.50 m/sec Peak A:.73 m/sec E/A Ratio:2.1 Peak E' Lat Martin:11.9 cm/s Peak E' Med Martin:4.87 cm/s E/E' Lat Ratio:13.6 E/E' Med Ratio:33.3 Tricuspid Valve TV Regurg Peak Grad: 19.00mmHg TV Regurg Peak Martin: 2.19m/sec Updated by Shiv Tripp DO, FACDebbie, [place], [place]AS[place] on 09/19/2016 11:19:54 AM electronically signed on 09/19/2016 11:20:21 AM with status of Final Wall Motion Cruz: 1=Normal, 2=Hypokinesis, 3=Akinesis, 4=Dyskinesis, 5=Aneurysmal, 6=Hyperkinetic, X=Not Visualized (Blank)=Missing
== END 2016-09-19 11:53 | disposition home or self-care (01) ==
LOC: EMEROO 20:18 → 2NENU 20:18
PROVIDERS: ADMIT Internal Medicine; ATTEND Internal Medicine